=== PATIENT | male | born 1950 | race Caucasian/White ===

== ENCOUNTER 2018-04-24 08:37 | Observation (INO) | payer MEDICAID, OTHER ==
[2018-04-24] MEDS ORDERED: NA CHLORIDE 0.9% 1,000 ML ONE (09:17)
[2018-04-24 09:18] LABS: Absolute Lymphocytes (CBC) 1.7 K/uL (0.7-4.9); Absolute Monocytes 0.9 K/uL (0.1-1.3); Absolute Neutrophil 4.5 K/uL (1.8-8.0); Basophils % 0.7 % (0-1.3); Eosinophils % 1.9 % (0-4.4); Hematocrit 47.4 % (39.6-49.0); Lymphocytes % 23.5 % (15.3-44.8); MPV 9.2 fL (7.6-11.3); Monocytes % 12.2 % (3.3-12.3); RBC Red Blood Cell Count 4.82 M/uL (4.33-5.43)
[2018-04-24 09:39] LABS: Albumin 3.5 g/dL (3.4-5.0); Bilirubin Direct 0.2 mg/dL (0-0.2); Bilirubin Total 0.8 mg/dL (0.2-1.0); Potassium 4.2 mmol/L (3.5-5.1); Protein, Total 7.1 g/dL (6.4-8.2)
[2018-04-24] MEDS ORDERED: MAGNESIUM SULFATE 1 gm IVPB 1 GM/100 ML BAG IV ONE (10:25)
[2018-04-24 10:27] LABS: Urine Bacteria <20 /HPF (NONE SEEN); Urine RBC <5 /HPF (NONE SEEN)
[2018-04-24 10:28] LABS: Urine Culture Reflex Order NOT NEEDED
[2018-04-24 10:46] LABS: Urine Blood NEGATIVE (NEG); Urine Glucose NEGATIVE (NEG); Urine Protein NEGATIVE (NEG); Urine Specific Gravity 1.025 (1.005-1.030); Urine pH 5.5 (5.0-7.0)
--- NOTE | 2018-04-24 10:49 | RAD REPORT ---
EXAM DESCRIPTION: RAD - Abdomen 1 View (KUB) - 04/24/2018 10:40 am CLINICAL HISTORY: left flank pain Pain COMPARISON: No comparisons FINDINGS: The bowel gas pattern is non-obstructive. No evidence of free air or pneumatosis. [place] c alcification is seen likely within the left renal pelvis. Cholecystectomy clips. IMPRESSION: [place] stone suspected in the left renal pelvis.
--- NOTE | 2018-04-24 11:15 | RAD REPORT ---
EXAM DESCRIPTION: US - Renal Ultrasound-Complete - 04/24/2018 11:06 am CLINICAL HISTORY: left flank pain COMPARISON: ABDOMINAL EXAM COMPLETE dated 08/24/2010; ABDOMINAL EXAM COMPLETE dated 11/13/2008 FINDINGS: Both kidneys are normal in size, shape and echotexture. The right kidney measures 11.2 x 6.2 x 4.9 cm. No hydronephrosis, focal mass or perinephric fluid. The left kidney measures 11.7 x 7.6 x 4.8 cm. Moderate left hydronephrosis seen. The urinary bladder is incompletely distended without gross abnormality seen. IMPRESSION: Moderate left hydronephrosis.
[2018-04-24] MEDS ORDERED: MORPHINE 4 MG/ML SYR ONE (12:07)
[2018-04-24] MEDS ORDERED: ONDANSETRON 4 MG/2 ML VIAL ONE (12:07)
--- NOTE | 2018-04-24 13:24 | EDPHYS ---
Physician Documentation [facility] Name: Harris Jones Age: 67 yrs Sex: Male : 1950 Arrival Date: 04/24/2018 Time: 08:41 Bed 6 Private MD: ED Physician Chang Uribe HPI: 04/24 09:02 This 67 yrs old Male presents to ER via Ambulatory with complaints of cp Possible Kidney Stone. 09:02 The patient complains of pain in the left flank. The pain radiates to the abdomen. cp Onset: The symptoms/episode began/occurred 2 day(s) ago. 09:02 Associated signs and symptoms: Pertinent positives: decreased urinary output, Pertinent cp negatives: diarrhea, fever, pain radiating to the lower extremities, vomiting. 09:02 The patient has been recently seen by a physician: in [place] ED, with similar cp presenting complaints, and apparently given a diagnosis of left kidney stone, lab tests were done, CT scan was done, transfer recommended but patient reports he refused transfer. Historical: - Allergies: 08:51 Talwin; hb - PMHx: 08:51 Hypertension; Hypothyroidism; hb - PSHx: 08:51 Back; Pelvis; hb - Immunization history:: Adult Immunizations up to date, Adult Immunizations not immunized. - Social history:: Smoking status: Patient/guardian denies using tobacco, Smoking status: Patient uses tobacco products, Patient/guardian denies using alcohol. - Ebola Screening: : No symptoms or risks identified at this time Patient negative for fever greater than or equal to 101.5 degrees Fahrenheit, and additional compatible Ebola Virus Disease symptoms Patient denies exposure to infectious person Patient denies travel to an Ebola-affected area in the 21 days before illness onset. ROS: 09:05 Constitutional: Negative for body aches, chills, fever, poor PO intake. cp 09:05 Eyes: Negative for injury, pain, redness, and discharge. cp 09:05 ENT: Negative for drainage from ear(s), ear pain, sore throat, difficulty swallowing, difficulty handling secretions. 09:05 Cardiovascular: Negative for chest pain, edema, palpitations. 09:05 Respiratory: Negative for cough, shortness of breath, wheezing. 09:05 Abdomen/GI: Negative for vomiting, diarrhea, constipation, anorexia, black/tarry stool, rectal bleeding. 09:05 Back: Positive for flank pain, on the left. 09:05 MS/extremity: Negative for injury or acute deformity, decreased range of motion, paresthesias. 09:05 Skin: Negative for cellulitis, rash. 09:05 Neuro: Negative for altered mental status, headache, weakness. 09:05 All other systems are negative. Exam: 09:10 Constitutional: The patient appears in no acute distress, alert, awake, cp non-diaphoretic, non-toxic, well developed, well nourished. 09:10 Head/Face: Normocephalic, atraumatic. cp 09:10 Eyes: Periorbital structures: appear normal, Conjunctiva: normal, no exudate, no injection, Sclera: no appreciated abnormality, Lids and lashes: appear normal, bilaterally. 09:10 ENT: External ear(s): are unremarkable, Nose: is normal, Mouth: Lips: moist, Oral mucosa: moist, Posterior pharynx: Airway: no evidence of obstruction, patent. 09:10 Neck: ROM/movement: is normal, is supple, without pain, no range of motions limitations, no nuchal rigidity. 09:10 Chest/axilla: Inspection: normal, Palpation: is normal, no crepitus, no tenderness. 09:10 Cardiovascular: Rate: normal, Rhythm: regular, Edema: is not appreciated, JVD: is not appreciated. 09:10 Respiratory: the patient does not display signs of respiratory distress, Respirations: normal, no use of accessory muscles, no retractions, no splinting, no tachypnea, labored breathing, is not present, Breath sounds: are clear throughout, no decreased breath sounds, no stridor, no wheezing. 09:10 Abdomen/GI: Inspection: abdomen appears normal, Bowel sounds: active, all quadrants, Palpation: abdomen is soft and non-tender, in all quadrants. 09:10 Back: pain, that is moderate, of the left flank, ROM is normal. 09:10 Skin: cellulitis, is not appreciated, no rash present. 13:45 ECG was reviewed by the Attending Physician. cp Vital Signs: 08:50 BP 136 / 79; Pulse 62; Resp 16; Temp 97.4; Pulse Ox 100% on R/A; Weight 117.93 kg; hb Height 6 ft. 2 in. (187.96 cm) (R); Pain 6/10; 10:00 BP 140 / 75; Pulse 65; Resp 18; Pulse Ox 100% on R/A; hj 11:20 BP 139 / 76; Pulse 67; Resp 18; Pulse Ox 100% on R/A; hj 12:30 BP 132 / 75; Pulse 66; Resp 18; Pulse Ox 100% on R/A; hj 13:33 BP 128 / 74; Pulse 65; Resp 18; Pulse Ox 100% on R/A; hj 08:50 Body Mass Index 33.38 (117.93 kg, 187.96 cm) hb MDM: 08:45 Patient medically screened. 11:25 Physician consultation: Lisandra Pozo MD was called at 11:26, left message on voicemail. 12:15 Data reviewed: vital signs, nurses notes, lab test result(s), radiologic studies, plain cp films, ultrasound, and as a result, I will admit patient. 12:27 Physician consultation: Lisandra Pozo MD was called at 12:28, left message on cp voicemail. 12:51 Physician consultation: Jorje Oconnor MD was contacted at 12:51, regarding admission, cp patient's condition, will contact DR Pozo prior to admiting. 13:12 Physician consultation: Lisandra Pozo MD was contacted at 13:13, in the emergency cp department to see patient at 13:13. 04/24 09:02 Order name: Basic Metabolic Panel; Complete Time: 09:51 04/24 09:54 Interpretation: Normal except: GLUC 172; BUN 21; CRE 2.11; GFR 32; CA 8.4. 04/24 09:02 Order name: CBC with Diff; Complete Time: 09:51 cp 04/24 09:02 Order name: Creatinine for Radiology; Complete Time: 09:51 04/24 10:36 Interpretation: Reviewed. 04/24 09:02 Order name: Hepatic Function; Complete Time: 09:51 cp 04/24 09:02 Order name: Lipase; Complete Time: 09:51 cp 04/24 09:02 Order name: Urine Microscopic Only; Complete Time: 10:36 cp 04/24 10:36 Interpretation: Normal except: SQEPI 5-10. 04/24 09:54 Order name: XRAY KUB; Complete Time: 10:51 cp 04/24 09:54 Order name: US Rp Exam Complete; Complete Time: 12:47 cp 04/24 10:21 Order name: Urine Dipstick--Ancillary (enter results); Complete Time: 10:51 bd 04/24 13:12 Order name: XRAY Chest (1 view) cp 04/24 13:46 Order name: Abdomen 1 View (KUB) XRAY bd 04/24 14:07 Order name: RAD EDMS 04/24 09:02 Order name: IV Saline Lock; Complete Time: 09:04 cp 04/24 09:02 Order name: Labs collected and sent; Complete Time: 09:13 cp 04/24 09:02 Order name: Urine Dipstick-Ancillary (obtain specimen); Complete Time: 10:15 cp 04/24 13:12 Order name: EKG; Complete Time: 13:38 cp 04/24 13:12 Order name: EKG - Nurse/Tech; Complete Time: 13:42 cp 04/24 13:12 Order name: CONS Physician Consult; Complete Time: 13:29 EDMS EC:45 Rate is 51 beats/min. Rhythm is regular. ME interval is normal. QRS interval is normal. cp QT interval is normal. Interpreted by me. Reviewed by me. Administered Medications: 09:04 Drug: NS 0.9% 500 ml Route: IV; Rate: bolus; Site: right forearm; hj 10:04 Follow up: IV Status: Completed infusion hj 10:15 Drug: Magnesium Sulfate 1 grams Route: IVPB; Infused Over: 1 hrs; Site: right forearm; hj 13:30 Follow up: IV Status: Completed infusion hj 11:23 Drug: NS 0.9% 1000 ml Route: IV; Rate: 100 ml/hr; Site: right forearm; hj 13:29 Follow up: IV Status: Infusion continued upon admission hj 11:48 Drug: morphine 4 mg Route: IVP; Site: right forearm; hj 13:19 Follow up: Response: No adverse reaction; Pain is decreased hj 11:49 Drug: Zofran 4 mg Route: IVP; Site: right forearm; hj 13:18 Follow up: Response: No adverse reaction; Nausea is decreased hj 13:29 Drug: Rocephin - (cefTRIAXone) 1 grams Route: IVPB; Infused Over: 30 mins; Site: right hj forearm; 13:29 Follow up: IV Status: Completed infusion hj Disposition: 14:48 Co-signature as Attending Physician, Chang Uribe MD. rn Disposition: 04/24/18 13:24 Hospitalization ordered by Jorje Oconnor for Inpatient Admission. Preliminary diagnosis are Calculus of kidney - Left, Hydronephrosis with renal and ureteral calculous obstruction - Left, Acute kidney failure. - Bed requested for Telemetry/MedSurg (observation). - Status is Inpatient Admission. hj - Condition is Stable. - Problem is new. - Symptoms have improved. UTI on Admission? No Signatures: Dispatcher [employer] EDMS Chang Uribe MD MD rn Joaquin, Henry, RN RN Cristi Mills PA PA cp Baxter, Heather, RN RN Corrections: (The following items were deleted from the chart) 09:54 09:54 Normal except: GLUC 172; BUN 21; CRE 2.11; GFR 32. cp cp 13:24 13:24 Hospitalization Ordered by Jorje Oconnor MD for Observation. Preliminary diagnosis cp is Calculus of kidney - Left; Hydronephrosis with renal and ureteral calculous obstruction - Left; Acute kidney failure. Bed requested for Telemetry/MedSurg (observation). Status is Observation. Condition is Stable. Problem is new. Symptoms have improved. UTI on Admission? No. cp 14:24 13:24 04/24/2018 13:24 Hospitalization Ordered by Jorje Oconnor MD for Inpatient Admission. Preliminary diagnosis is Calculus of kidney - Left; Hydronephrosis with renal and ureteral calculous obstruction - Left; Acute kidney failure. Bed requested for Telemetry/MedSurg (observation). Status is Inpatient Admission. Condition is Stable. Problem is new. Symptoms have improved. UTI on Admission? No. cp
--- NOTE | 2018-04-24 13:24 | ER ---
Nurse's Notes [facility] Name: Harris Jones Age: 67 yrs Sex: Male : 1950 Arrival Date: 04/24/2018 Time: 08:41 Bed 6 Private MD: Diagnosis: Calculus of kidney-Left;Hydronephrosis with renal and ureteral calculous obstruction-Left;Acute kidney failure Presentation: 04/24 08:48 Presenting complaint: Left flank pain x 2 days. Seen at [place] ED yesterday for same hb s/s, told he has kidney stones but refused to stay in hospital. Transition of care: patient was not received from another setting of care. Onset of symptoms was April 22, 2018. Risk Assessment: Do you want to hurt yourself or someone else? Patient reports no desire to harm self or others. Initial Sepsis Screen: Does the patient meet any 2 criteria? No. Patient's initial sepsis screen is negative. Does the patient have a suspected source of infection? No. Patient's initial sepsis screen is negative. Care prior to arrival: None. 08:48 Method Of Arrival: Ambulatory hb 08:48 Acuity: MARIAH 3 hb Historical: - Allergies: 08:51 Talwin; hb - PMHx: 08:51 Hypertension; Hypothyroidism; hb - PSHx: 08:51 Back; Pelvis; hb - Immunization history:: Adult Immunizations up to date, Adult Immunizations not immunized. - Social history:: Smoking status: Patient/guardian denies using tobacco, Smoking status: Patient uses tobacco products, Patient/guardian denies using alcohol. - Ebola Screening: : No symptoms or risks identified at this time Patient negative for fever greater than or equal to 101.5 degrees Fahrenheit, and additional compatible Ebola Virus Disease symptoms Patient denies exposure to infectious person Patient denies travel to an Ebola-affected area in the 21 days before illness onset. Screenin:51 Abuse screen: Denies threats or abuse. Denies injuries from another. Nutritional hj screening: No deficits noted. Tuberculosis screening: No symptoms or risk factors identified. Fall Risk None identified. Assessment: 08:49 General: Appears in no apparent distress. uncomfortable, Behavior is calm, cooperative, hj appropriate for age. Pain: Complains of pain in L flank Pain currently is 6 out of 10 on a pain scale. Neuro: Level of Consciousness is awake, alert, obeys commands, Oriented to person, place, time, situation, Appropriate for age. Cardiovascular: Capillary refill < 3 seconds Patient's skin is warm and dry. Respiratory: Airway is patent Respiratory effort is even, unlabored, Respiratory pattern is regular, symmetrical. GI: Bowel sounds Abd is soft and non tender. : Reports pain in left flank(s). EENT: No signs and/or symptoms were reported regarding the EENT system. Derm: No signs and/or symptoms reported regarding the dermatologic system. Musculoskeletal: No signs and/or symptoms reported regarding the musculoskeletal system. 09:30 Reassessment: Patient and/or family updated on plan of care and expected duration. Pain hj level reassessed. Patient is alert, oriented x 3, equal unlabored respirations, skin warm/dry/pink. awaiting results and POC;. 10:30 Reassessment: Patient and/or family updated on plan of care and expected duration. Pain hj level reassessed. Patient is alert, oriented x 3, equal unlabored respirations, skin warm/dry/pink. wheeled to US;. 11:18 Reassessment: Patient and/or family updated on plan of care and expected duration. Pain hj level reassessed. Patient is alert, oriented x 3, equal unlabored respirations, skin warm/dry/pink. awaiting POC:. Vital Signs: 08:50 BP 136 / 79; Pulse 62; Resp 16; Temp 97.4; Pulse Ox 100% on R/A; Weight 117.93 kg; hb Height 6 ft. 2 in. (187.96 cm) (R); Pain 6/10; 10:00 BP 140 / 75; Pulse 65; Resp 18; Pulse Ox 100% on R/A; hj 11:20 BP 139 / 76; Pulse 67; Resp 18; Pulse Ox 100% on R/A; hj 12:30 BP 132 / 75; Pulse 66; Resp 18; Pulse Ox 100% on R/A; hj 13:33 BP 128 / 74; Pulse 65; Resp 18; Pulse Ox 100% on R/A; hj 08:50 Body Mass Index 33.38 (117.93 kg, 187.96 cm) hb ED Course: 08:41 Patient arrived in ED. as 08:45 Cristi Mills PA is PHCP. cp 08:45 Chang Uribe MD is Attending Physician. cp 08:49 Timo Carrizales, VITO is Primary Nurse. hj 08:49 Triage completed. hb 08:50 Arm band placed on. hb 08:51 Patient has correct armband on for positive identification. Placed in gown. Bed in low hb position. Call light in reach. Side rails up X 1. 08:55 Inserted saline lock: 22 gauge in right forearm, using aseptic technique. Missed pc1 attempt(s): 20 gauge in right forearm. IV discontinued, intact, bleeding controlled, No redness/swelling at site. Pressure dressing applied. 09:00 Initial lab(s) drawn, by me, sent to lab. hj 09:13 Basic Metabolic Panel Sent. hj 09:13 Creatinine for Radiology Sent. hj 09:13 CBC with Diff Sent. hj 09:13 Hepatic Function Sent. hj 09:13 Lipase Sent. hj 10:24 Patient moved to radiology via wheelchair. jb2 10:37 X-ray completed. Patient tolerated procedure well. Patient moved back from radiology. jb2 10:38 XRAY KUB In Process Unspecified. EDMS 11:05 US Rp Exam Complete In Process Unspecified. EDMS 13:23 Jorje Oconnor MD is Hospitalizing Provider. cp 13:34 No provider procedures requiring assistance completed. hj Administered Medications: 09:04 Drug: NS 0.9% 500 ml Route: IV; Rate: bolus; Site: right forearm; hj 10:04 Follow up: IV Status: Completed infusion hj 10:15 Drug: Magnesium Sulfate 1 grams Route: IVPB; Infused Over: 1 hrs; Site: right forearm; hj 13:30 Follow up: IV Status: Completed infusion hj 11:23 Drug: NS 0.9% 1000 ml Route: IV; Rate: 100 ml/hr; Site: right forearm; hj 13:29 Follow up: IV Status: Infusion continued upon admission hj 11:48 Drug: morphine 4 mg Route: IVP; Site: right forearm; hj 13:19 Follow up: Response: No adverse reaction; Pain is decreased hj 11:49 Drug: Zofran 4 mg Route: IVP; Site: right forearm; hj 13:18 Follow up: Response: No adverse reaction; Nausea is decreased hj 13:29 Drug: Rocephin - (cefTRIAXone) 1 grams Route: IVPB; Infused Over: 30 mins; Site: right hj forearm; 13:29 Follow up: IV Status: Completed infusion Outcome: 13:24 Decision to Hospitalize by Provider. cp 13:34 Admitted to OR accompanied by tech, via wheelchair, with chart. 13:34 Condition: stable 13:34 Instructed on the need for admit, Demonstrated understanding of instructions. 14:24 Patient left the ED. Signatures: Dispatcher [employer] EDMS Chris Moran Amelia as Joaquin, Henry, RN RN Cristi Urena PA PA cp Lashae Thomas, VITO RN Rick Lobato pc1
[2018-04-24] MEDS ORDERED: CEFTRIAXONE/SWI 1gm 1 GM/10 ML SYR ONE (13:36)
--- NOTE | 2018-04-24 14:06 | RAD REPORT ---
EXAM DESCRIPTION: RAD - Chest Single View - 04/24/2018 1:51 pm CLINICAL HISTORY: Left flank pain COMPARISON: None. TECHNIQUE: AP portable chest image was obtained 1348 hours . FINDINGS: Lungs are clear. Heart and vasculature are normal. No measurable pleural effusion and no p neumothorax. No acute bony abnormality seen. No acute aortic findings suspected. IMPRESSION: No acute cardiopulmonary process.
[2018-04-24] MEDS ORDERED: MIDAZOLAM HCL 2 MG/2 ML INJ ONE (14:18)
[2018-04-24] MEDS ORDERED: FENTANYL CITR 100 MCG/2 ML ONE (14:18)
[2018-04-24] MEDS ORDERED: LIDOCAINE 2% MPF 5 ML VIAL ONE (14:18)
[2018-04-24] MEDS ORDERED: PROPOFOL 200 MG/20 ML VIAL IV ONE (14:18)
[2018-04-24] MEDS ORDERED: NA CHLORIDE 0.9% 1,000 ML IV SCH (14:22)
[2018-04-24] MEDS ORDERED: Ringers Lactate 1,000 ML IV ONE (14:38)
[2018-04-24] MEDS ORDERED: Mastisol Adhesive Liq ONE (15:21)
[2018-04-24] MEDS ORDERED: GLYCOPYRROLATE 0.2 MG/ML SYR ONE (15:28)
[2018-04-24] MEDS ORDERED: EPHEDRINE SULF 50 MG/10 ML SYR ONE (15:38)
[2018-04-24 16:38] LABS: Urine Bacteria 20-50 /HPF (NONE SEEN)
[2018-04-24 16:39] LABS: Urine Culture Reflex Order NOT NEEDED; Urine Mucus 2+ /HPF (NONE SEEN)
[2018-04-24] MEDS ORDERED: TRAMADOL HCL 50 MG TAB ONE (17:11)
--- NOTE | 2018-04-24 18:32 | P.SSS ---
Patient History Date of Service: 04/24/18 Reason for admission: Left flank pain History of Present Illness: This is a 67-year-old male with a history of hypertension and thyroid disease admitted for left leg pain. This pain started on Monday and patient went to [facility] on Monday, where he left AMA. The pain progressively got worse , so he came into the hospital. He was found to have a 11 mm stone in the left UPJ along with hydronephrosis in the ER. Patient denies any fevers, chills, chest pain, shortness of breath, GI complaints. He does endorse a hard time urinating, which is improved today. In the ER, patient was hemodynamically stable, he received Rocephin, morphine and Zofran which helped his pain. His lab work was significant for creatinine of 2.11, otherwise normal. At the time of my exam, patient was alert oriented x3, in no acute distress and was walking around comfortably. Dr. Pozo, urology was consulted. Allergies No Known Allergies Allergy (Unverified 04/24/18 14:22) - Past Medical/Surgical History -: Hypertension -: Thyroid disease Review of Systems 10-point ROS is otherwise unremarkable Physical Examination - Vital Signs Temperature: 97.4 F Blood Pressure: 130/72 Pulse: 80 Respirations: 18 - Physical Exam General: Alert, In no apparent distress, Oriented x3 HEENT: Atraumatic, PERRLA, Mucous membr. moist/pink, EOMI, Sclerae nonicteric Neck: Supple, 2+ carotid pulse no bruit, No LAD, Without JVD or thyroid abnormality Respiratory: Clear to auscultation bilaterally, Normal air movement Cardiovascular: Regular rate/rhythm, Normal S1 S2 Gastrointestinal: Normal bowel sounds, No tenderness Musculoskeletal: No tenderness Integumentary: No rashes Neurological: Normal gait, Normal speech, Normal strength at 5/5 x4 extr, Normal tone, Normal affect Lymphatics: No axilla or inguinal lymphadenopathy - Studies Laboratory Data (last 24 hrs) 04/24/18 09:00: Creatinine 2.12 H 04/24/18 09:00: WBC 7.3, Hgb 16.0, Hct 47.4, Plt Count 166 04/24/18 09:00: Sodium 142, Potassium 4.2, BUN 21 H, Creatinine 2.11 H, Glucose 172 H, Total Bilirubin 0.8, AST 21, ALT 34, Alkaline Phosphatase 112, Lipase 124 Treatment Summary: Dr. Pozo, urology was consulted. Patient underwent cystoscopy with stent placement. Patient's symptoms improved. He remained hemodynamically stable, tolerated procedure well. He was discharged from the recovery room with instructions to follow up as an outpatient with Dr. Pozo for repeat blood work , creatinine/lab recheck. He remained stable otherwise throughout the stay. No medication changes made - Disposition Discharge Date: 04/24/18 Disposition: ROUTINE DISCHARGE Condition: GOOD Consultations: Dr. Pozo, urology Patient Discharge Instructions: Please follow up with Dr. Pozo in 1 week. Please follow up with your primary care physician in 2-3 days. Diet: Regular Activity: Ad cha Time Spent Managing Pts Care (In Minutes): 55
--- NOTE | 2018-04-24 18:35 | CON ---
History Of Present Illness: This is a pleasant 67-year-old gentleman, who was in good state of healt h until 2 days ago after having severe left flank pain. He went to [facility] where a workup was done showing that he had an 11 mm stone at the left UPJ with a normal right kidney. He had a 4 mm nonobs tructing right renal pelvic stone also, but there was marked left hydronephrosis and extensive left p erinephric fat stranding with 11 mm stone at left UPJ. The pain was so severe in nature, decided to come to this ER, they try to send to [place], but he did not want to go since he lost a brother in [facility] due to kidney stone surgery. This patient said he had a left percutaneous stone surgery done y ears ago in [place] on the same kidney. He has been n.p.o. overnight. However, he drank 2 cups of c lear water 30 minutes prior to me seeing the patient, so we will have to wait at least 2 hours for an esthesia. Past Medical History: Kidney stones, hypertension, hypothyroidism. Medications: Levothyroxine, amitriptyline, Bystolic. Allergies: TO TALWIN CAUSES PARALYSIS IN HIS VOICE AND BODY MOVEMENTS. Social History: No tobacco. No alcohol. No IV drug use. Family History: Noncontributory. Brother had a kidney stone. Review of Systems: Ten-point review of system is otherwise negative. Physical Examination: Vital Signs: In the ER blood pressure 136/79, heart rate 62, temperature 97.4, respirations 22, heig ht 6 feet 2 inches, weight 260 pounds. HEENT: Atraumatic and normocephalic. Lungs: Clear. Heart: S1 and S2. ABDOMEN: Soft. Nontender. Extremities: Normal range of motion. Laboratory Data: Lab Studies reviewed. Sodium 139, potassium 4.3, chloride 105, CO2 23, glucose 157 , BUN 16, creatinine 1.5 elevated. EGFR for him on non- is 50. Calcium 8.6 normal. LFTs normal. White count normal at 8.9, H and H 16 and 47, platelet count 188. Urinalysis pending. Assessment: An 11 mm left UPJ stone causing marked left hydronephrosis and pain. Extensive perineph gissell fat stranding. The patient needs a cysto stent placement and ESWL. NERY Hernandez tech is going t o wait to do the case. The patient was given all general information, alternatives, and risks. He w as not coerced. He was understood everything that we explained and wishes to proceed. FUAD/AMANDA Voice ID: [id number] Report ID: [id number]
--- NOTE | 2018-04-26 10:31 | EKG ---
Test Date: 2018-04-24 Test Time: 13:34:05 [employer]cher[employer] Inspector: STEVE MEASUREMENT RESULTS: Intervals: Rate: 51 [place]: 160 QRSD: 100 QT: 422 QTc: 388 [place]: P: 53 [place]: 160 QRS: 56 T: 49 INTERPRETIVE STATEMENTS: Sinus bradycardia Otherwise normal ECG Compared to ECG 10/18/2005 18:36:45 T-wave abnormality no longer present Electronically Signed On 04-25-18 08:12:10 CDT by Jeremiah Abdalla
== END 2018-04-24 17:55 | disposition home or self-care (01) ==
LOC: ER 08:37 → ERHOLD 13:11 → INTOOBSV 13:11
PROVIDERS: ADMIT Family Medicine; ATTEND Family Medicine
PROC: 0T778DZ Dilation of Left Ureter with Intraluminal Device, Via Natural or Artificial Opening Endoscopic (ICD-10-PCS; 2018-04-24)
PROC: 0TF7XZZ Fragmentation in Left Ureter, External Approach (ICD-10-PCS; principal; 2018-04-24 15:00)
DX: N13.2 Hydronephrosis with renal and ureteral calculous obstruction (principal); I10 Essential (primary) hypertension; E03.9 Hypothyroidism, unspecified
CPT/HCPCS: 96365; 96361; 93005; 87088; 85025; 80048; 36415; 80076; 83690; 74018; 71045; 76770; 50590; 96375; 99285; 96366; 52332; J2704; J2250; J3010; J3475; J0696; J7030; J2405; Q9967; G0378; 81003; 81015; 87086

== ENCOUNTER 2019-12-19 08:22 | Emergency (ER) | payer OTHER ==
[2019-12-19 09:41] LABS: Absolute Lymphocytes (CBC) 1.6 K/uL (0.7-4.9); Basophils % 0.4 % (0-1.3); Hematocrit 50.7 % (39.6-49.0); Lymphocytes % 43.2 % (15.3-44.8); MPV 9.3 fL (7.6-11.3); RBC Red Blood Cell Count 5.19 M/uL (4.33-5.43)
[2019-12-19 09:50] LABS: Albumin 3.6 g/dL (3.4-5.0); Bilirubin Direct 0.1 mg/dL (0-0.2); Bilirubin Total 0.6 mg/dL (0.2-1.0); Potassium 4.4 mmol/L (3.5-5.1); Protein, Total 7.6 g/dL (6.4-8.2)
[2019-12-19 09:59] LABS: Urine Blood 3+ (NEG); Urine Glucose NEGATIVE (NEG); Urine Protein 2+ (NEG); Urine Specific Gravity >1.030 (1.005-1.030); Urine pH 5.5 (5.0-7.0)
[2019-12-19] MEDS ORDERED: ONDANSETRON 4 MG/2 ML VIAL ONE (10:00)
[2019-12-19] MEDS ORDERED: NA CHLORIDE 0.9% 500 ML ONE ×2 (10:00→12:12)
[2019-12-19] MEDS ORDERED: KETOROLAC 30 MG/ML INJ ONE (10:00)
--- NOTE | 2019-12-19 10:30 | RAD REPORT ---
EXAM DESCRIPTION: CT - Stone Protocol - 12/19/2019 10:07 am CLINICAL HISTORY: Abdominal pain. Right flank pain COMPARISON: None. TECHNIQUE: Computed axial tomography of the abdomen pelvis was obtained without oral or IV contrast. Lack of IV and oral contrast limits evaluation of solid organs, bowel, and vessels. Coronal reformat russell images were obtained and reviewed. All CT scans are performed using dose optimization technique as appropriate and may include automated exposure control or mA/KV adjustment according to patient size. FINDINGS: A a 9 millimeter calculus right renal pelvis with mild hydronephrosis. Hounsfield unit 111 9. Stranding within the parapelvic fat. A ureteral calculus is not seen. No left renal calculus. Fatty liver Spleen, pancreas and adrenals appear grossly normal Spondylosis involves lumbar spine resulting in spinal stenosis 5 millimeter nodule right lung base Diverticula stem from the colon without evidence of diverticulitis. The appendix appears normal. Smal l inguinal hernias contain fat. Postsurgical changes involve the pelvic bones. IMPRESSION: A 9 millimeter calculus right renal pelvis with mild hydronephrosis 5 millimeter nodule right lung base. If patient is high risk then followup CT chest in 6-12 months wo uld be recommended
[2019-12-19] MEDS ORDERED: MORPHINE 4 MG/ML SYR ONE (11:07)
[2019-12-19] MEDS ORDERED: MAGNESIUM SULFATE 1 gm IVPB 1 GM/100 ML BAG IV ONE (11:08)
[2019-12-19] MEDS ORDERED: TAMSULOSIN 0.4 MG SR CAP ONE (11:08)
[2019-12-19] MEDS ORDERED: CEFTRIAXONE/SWI 1gm 1 GM/10 ML SYR ONE (11:08)
[2019-12-19 11:11] LABS: Urine Bacteria <20 /HPF (NONE SEEN); Urine Culture Reflex Order NOT NEEDED; Urine Mucus HEAVY /HPF (NONE SEEN); Urine RBC TNTC /HPF (NONE SEEN)
[2019-12-19] MEDS ORDERED: HYDROMORPHONE HCL 1 MG/ML INJ ONE (12:03)
--- NOTE | 2019-12-19 12:28 | ER ---
Nurse's Notes [facility] Name: Harris Jones Age: 69 yrs Sex: Male : 1950 Arrival Date: 12/19/2019 Time: 08:23 Bed 14 Private MD: Diagnosis: Calculus of kidney and ureter-right Presentation: 12/18 08:58 Chief complaint: Patient states: right flank pain X 2 days, +hx of kidney stones, also iw has burning with urination. Coronavirus screen: At this time, the client does not indicate any symptoms associated with coronavirus-19. Ebola Screen: Patient negative for fever greater than or equal to 101.5 degrees Fahrenheit, and additional compatible Ebola Virus Disease symptoms Patient denies exposure to infectious person. Patient denies travel to an Ebola-affected area in the 21 days before illness onset. No symptoms or risks identified at this time. Initial Sepsis Screen: Does the patient meet any 2 criteria? No. Patient's initial sepsis screen is negative. Does the patient have a suspected source of infection? No. Patient's initial sepsis screen is negative. Risk Assessment: Do you want to hurt yourself or someone else? Patient reports no desire to harm self or others. Onset of symptoms was December 17, 2019. 08:58 Method Of Arrival: Ambulatory iw 08:58 Acuity: MARIAH 3 iw Historical: - Allergies: 09:00 Talwin; iw - PMHx: 09:00 Hypertension; Hypothyroidism; iw - PSHx: 09:00 Back; Pelvis; Lithotripsy; iw - Immunization history:: Adult Immunizations not up to date. - Social history:: Smoking status: Patient denies any tobacco usage or history of. Screenin:01 Abuse screen: Denies threats or abuse. Denies injuries from another. Nutritional iw screening: No deficits noted. Tuberculosis screening: No symptoms or risk factors identified. Fall Risk None identified. Assessment: 09:00 General: Appears in no apparent distress. Behavior is calm, cooperative. Pain: iw Complains of pain in posterior aspect of right lateral abdomen Pain currently is 10 out of 10 on a pain scale. Neuro: Level of Consciousness is awake, alert, obeys commands, Oriented to person, place, time, situation, Moves all extremities. Full function. Cardiovascular: Patient's skin is warm and dry. Respiratory: Respiratory effort is even, unlabored, Respiratory pattern is regular, symmetrical. GI: Abdomen is flat, non-distended, Bowel sounds present X 4 quads. Abd is soft X 4 quads. : Reports burning with urination, pain in right flank(s). Derm: Skin is intact, is healthy with good turgor. Musculoskeletal: Range of motion: intact in all extremities. 10:20 Reassessment: Patient appears in no apparent distress at this time. Patient and/or ca1 family updated on plan of care and expected duration. Pain level reassessed. Patient is alert, oriented x 3, equal unlabored respirations, skin warm/dry/pink. 11:05 Reassessment: Patient appears in no apparent distress at this time. Patient and/or ca1 family updated on plan of care and expected duration. Pain level reassessed. Patient is alert, oriented x 3, equal unlabored respirations, skin warm/dry/pink. 12:05 Reassessment: Patient appears in no apparent distress at this time. Patient and/or ca1 family updated on plan of care and expected duration. Pain level reassessed. Patient is alert, oriented x 3, equal unlabored respirations, skin warm/dry/pink. 12:47 Reassessment: Patient appears in no apparent distress at this time. Patient is alert, ca1 oriented x 3, equal unlabored respirations, skin warm/dry/pink. Patient states feeling better. Vital Signs: 08:58 BP 151 / 100; Pulse 57; Resp 16; Temp 98.6(TE); Pulse Ox 98% on R/A; Weight 122.47 kg; iw Height 6 ft. 2 in. (187.96 cm); Pain 10/10; 10:22 BP 130 / 82; Pulse 51; Resp 16 S; Pulse Ox 97% on R/A; ca1 11:05 BP 142 / 92; Pulse 51; Resp 16 S; Pulse Ox 97% on R/A; ca1 12:00 BP 136 / 78; Pulse 52; Resp 16 S; Pulse Ox 95% on R/A; ca1 12:48 BP 145 / 89; Pulse 51; Resp 16 S; Pulse Ox 96% on R/A; ca1 08:58 Body Mass Index 34.67 (122.47 kg, 187.96 cm) iw ED Course: 08:23 Patient arrived in ED. ag5 08:54 Vaishali Carvajal, VITO is Primary Nurse. iw 08:55 Cristi Mills PA is PHCP. cp 08:55 Brad Cool MD is Attending Physician. cp 08:59 Triage completed. iw 08:59 Arm band placed on. iw 09:18 Initial lab(s) drawn, by me, sent to lab. Inserted saline lock: 20 gauge in left iw antecubital area, using aseptic technique. 09:30 Patient has correct armband on for positive identification. Placed in gown. Bed in low mh5 position. Call light in reach. Side rails up X 1. Warm blanket given. Pulse ox on. NIBP on. 09:30 Urine Microscopic Only Sent. 5 09:30 Urine collected: clean catch specimen, deepti colored. [facility] 09:31 Basic Metabolic Panel Sent. 5 09:31 CBC with Diff Sent. 5 09:31 Hepatic Function Sent. 5 09:31 Lipase Sent. 5 10:08 CT Stone Protocol In Process Unspecified. EDMS 12:27 Jani Beck MD is Referral Physician. cp 12:49 No provider procedures requiring assistance completed. IV discontinued, intact, ca1 bleeding controlled, No redness/swelling at site. Pressure dressing applied. Administered Medications: 09:52 Drug: TORadol - Ketorolac 15 mg Route: IVP; Site: left antecubital; iw 11:03 Follow up: Response: No adverse reaction; Pain is unchanged, physician notified ca1 09:52 Drug: Zofran (Ondansetron) 4 mg Route: IVP; Site: left antecubital; iw 11:03 Follow up: Response: No adverse reaction; Nausea is decreased ca1 09:52 Drug: NS 0.9% 500 ml Route: IV; Rate: bolus; Site: left antecubital; iw 11:03 Follow up: Response: No adverse reaction; IV Status: Completed infusion; IV Intake: ca1 500ml 11:00 Drug: Flomax 0.4 mg Route: PO; ca1 12:48 Follow up: Response: No adverse reaction ca1 11:02 Drug: morphine 4 mg Route: IVP; Site: left antecubital; ca1 12:00 Follow up: Response: No adverse reaction; Pain is unchanged, physician notified; RASS: ca1 Alert and Calm (0) 11:04 Drug: Rocephin 1 grams Route: IV; Rate: calculated rate; Site: left antecubital; ca1 11:07 Drug: Magnesium Sulfate 1 grams Route: IVPB; Infused Over: 1 hrs; Site: left ca1 antecubital; 11:40 Drug: Dilaudid 1 mg {Note: rass 0.} Route: IVP; Site: left antecubital; ca1 12:49 Follow up: Response: No adverse reaction; Pain is decreased ca1 12:04 Drug: NS 0.9% 500 ml Route: IV; Rate: bolus; Site: left antecubital; ca1 12:49 Follow up: Response: No adverse reaction; IV Status: Completed infusion; IV Intake: ca1 500ml Intake: 11:03 IV: 500ml; Total: 500ml. ca1 12:49 IV: 500ml; Total: 1000ml. ca1 Outcome: 12:28 Discharge ordered by MD. cp 12:49 Discharged to home ambulatory, with family. ca1 12:49 Condition: stable 12:49 Discharge instructions given to patient, Instructed on discharge instructions, follow up and referral plans. medication usage, Demonstrated understanding of instructions, follow-up care, medications, Prescriptions given X 4. 12:50 Patient left the ED. ca1 Signatures: Dispatcher [employer] EDVaishali Norris RN RN iw Page, Corey, PA PA cp Martinez, Maria 5 Val Darling RN RN ca1 Gaskin, Ajare ag5
--- NOTE | 2019-12-19 12:29 | EDPHYS ---
Physician Documentation [facility] Name: Harris Jones Age: 69 yrs Sex: Male : 1950 Arrival Date: 12/19/2019 Time: 08:23 Bed 14 Private MD: ED Physician Brad Cool HPI: 12/18 09:00 This 69 yrs old Male presents to ER via Ambulatory with complaints of cp Possible Kidney Stone. 09:00 The patient complains of pain in the right flank. cp 09:00 The pain radiates to the abdomen. Onset: The symptoms/episode began/occurred 2 day(s) cp ago. Associated signs and symptoms: Pertinent negatives: diarrhea, dizziness, fever, pain radiating to the lower extremities, vomiting. Severity of pain: in the emergency department the pain is unchanged despite home interventions. The patient has experienced similar episodes in the past, today's symptoms are similar, to when the patient was apparently diagnosed with kidney stone. Historical: - Allergies: 09:00 Talwin; iw - PMHx: 09:00 Hypertension; Hypothyroidism; iw - PSHx: 09:00 Back; Pelvis; Lithotripsy; iw - Immunization history:: Adult Immunizations not up to date. - Social history:: Smoking status: Patient denies any tobacco usage or history of. ROS: 09:05 Back: Positive for flank pain, on the right. cp 09:05 Eyes: Negative for injury, pain, redness, and discharge. cp 09:05 Constitutional: Negative for body aches, chills, fever, poor PO intake. 09:05 Cardiovascular: Negative for chest pain. 09:05 Respiratory: Negative for cough, shortness of breath. 09:05 Abdomen/GI: Negative for nausea, vomiting, and diarrhea, constipation. 09:05 : Positive for burning with urination. 09:05 Neuro: Negative for altered mental status, headache, weakness. 09:05 All other systems are negative. Exam: 09:15 Constitutional: The patient appears in no acute distress, alert, awake, non-toxic, well cp developed, well nourished, obese. 09:15 Head/Face: Normocephalic, atraumatic. cp 09:15 Eyes: Periorbital structures: appear normal, Conjunctiva: normal, no exudate, no injection, Sclera: no appreciated abnormality, Lids and lashes: appear normal, bilaterally. 09:15 ENT: External ear(s): are unremarkable, Nose: is normal, Mouth: Lips: moist, Oral mucosa: moist, Posterior pharynx: Airway: no evidence of obstruction, patent. 09:15 Chest/axilla: Inspection: normal, Palpation: is normal, no crepitus, no tenderness. 09:15 Cardiovascular: Rate: normal, Rhythm: regular, Edema: is not appreciated, JVD: is not appreciated. 09:15 Respiratory: the patient does not display signs of respiratory distress, Respirations: normal, no use of accessory muscles, labored breathing, is not present, Breath sounds: are clear throughout, no decreased breath sounds. 09:15 Abdomen/GI: Inspection: abdomen appears normal, Bowel sounds: active, all quadrants, Palpation: soft, in all quadrants, mild abdominal tenderness, in the right upper quadrant and right lower quadrant, rebound tenderness, is not appreciated, voluntary guarding, is not appreciated, involuntary guarding, is not appreciated. 09:15 Back: CVA tenderness, that is mild, is noted on the right. 09:15 Skin: no rash present. 09:15 Neuro: Orientation: to person, place \T\ time. Mentation: is normal. Vital Signs: 08:58 BP 151 / 100; Pulse 57; Resp 16; Temp 98.6(TE); Pulse Ox 98% on R/A; Weight 122.47 kg; iw Height 6 ft. 2 in. (187.96 cm); Pain 10/10; 10:22 BP 130 / 82; Pulse 51; Resp 16 S; Pulse Ox 97% on R/A; ca1 11:05 BP 142 / 92; Pulse 51; Resp 16 S; Pulse Ox 97% on R/A; ca1 12:00 BP 136 / 78; Pulse 52; Resp 16 S; Pulse Ox 95% on R/A; ca1 12:48 BP 145 / 89; Pulse 51; Resp 16 S; Pulse Ox 96% on R/A; ca1 08:58 Body Mass Index 34.67 (122.47 kg, 187.96 cm) iw MDM: 08:56 Patient medically screened. cp 10:00 Differential diagnosis: nephrolithiasis, pyelonephritis, UTI, pancreatitis, ruptured cp AAA, dissecting AAA. 11:35 Physician consultation: Jani Beck MD was called at 11:30, was contacted at 11:30, cp regarding consult, patient's condition, recommends pain control and compare current creatine level to baseline. May f/u in clinic if pain and nausea controlled. 12:22 ED course: VSS. Pain improved. No vomiting observed and patient tolerating po fluids. cp Will discharge to home for continued monitoring. 12:27 Data reviewed: vital signs, nurses notes, lab test result(s), radiologic studies, CT cp scan, and as a result, I will discharge patient. 12:27 Counseling: I had a detailed discussion with the patient and/or guardian regarding: the cp historical points, exam findings, and any diagnostic results supporting the discharge/admit diagnosis, lab results, radiology results, the need for outpatient follow up, a urologist, to return to the emergency department if symptoms worsen or persist or if there are any questions or concerns that arise at home. 12:27 Response to treatment: the patient's symptoms have markedly improved after treatment. 12/18 08:59 Order name: Basic Metabolic Panel; Complete Time: 10:16 iw 12/18 10:16 Interpretation: Normal except: CL 109; CRE 1.55; GFR 45. cp 12/18 08:59 Order name: CBC with Diff; Complete Time: 10:16 iw 12/18 10:16 Interpretation: Normal except: WBC 3.8; HCT 50.7; PLT 140; CL% 38.5; MN% 16.8; NEUT A cp 1.4. 12/18 08:59 Order name: Hepatic Function; Complete Time: 10:16 iw 12/18 08:59 Order name: Lipase; Complete Time: 10:16 iw 12/18 09:12 Order name: Urine Microscopic Only; Complete Time: 11:26 cp 12/18 11:27 Interpretation: Normal except: URBC TNTC. cp 12/18 09:31 Order name: Urine Dipstick--Ancillary (enter results) em1 12/18 09:31 Order name: Urine Dipstick-Ancillary; Complete Time: 10:16 EDMS 12/18 10:16 Interpretation: Normal except: USPGR >1.030; UBLD 3+; UPROT 2+. cp 12/18 09:44 Order name: CT Stone Protocol; Complete Time: 10:45 cp 12/18 08:59 Order name: IV Saline Lock; Complete Time: 09:19 iw 12/18 08:59 Order name: Labs collected and sent; Complete Time: 09:19 iw 12/18 09:12 Order name: Urine Dipstick-Ancillary (obtain specimen); Complete Time: 09:29 cp 12/18 11:37 Order name: PO challenge; Complete Time: 11:57 cp Administered Medications: 09:52 Drug: TORadol - Ketorolac 15 mg Route: IVP; Site: left antecubital; iw 11:03 Follow up: Response: No adverse reaction; Pain is unchanged, physician notified ca1 09:52 Drug: Zofran (Ondansetron) 4 mg Route: IVP; Site: left antecubital; iw 11:03 Follow up: Response: No adverse reaction; Nausea is decreased ca1 09:52 Drug: NS 0.9% 500 ml Route: IV; Rate: bolus; Site: left antecubital; iw 11:03 Follow up: Response: No adverse reaction; IV Status: Completed infusion; IV Intake: ca1 500ml 11:00 Drug: Flomax 0.4 mg Route: PO; ca1 12:48 Follow up: Response: No adverse reaction ca1 11:02 Drug: morphine 4 mg Route: IVP; Site: left antecubital; ca1 12:00 Follow up: Response: No adverse reaction; Pain is unchanged, physician notified; RASS: ca1 Alert and Calm (0) 11:04 Drug: Rocephin 1 grams Route: IV; Rate: calculated rate; Site: left antecubital; ca1 11:07 Drug: Magnesium Sulfate 1 grams Route: IVPB; Infused Over: 1 hrs; Site: left ca1 antecubital; 11:40 Drug: Dilaudid 1 mg {Note: rass 0.} Route: IVP; Site: left antecubital; ca1 12:49 Follow up: Response: No adverse reaction; Pain is decreased ca1 12:04 Drug: NS 0.9% 500 ml Route: IV; Rate: bolus; Site: left antecubital; ca1 12:49 Follow up: Response: No adverse reaction; IV Status: Completed infusion; IV Intake: ca1 500ml Disposition: 13:31 Co-signature as Attending Physician, Brad Cool MD I agree with the assessment and kdr plan of care. Disposition: 12/19/19 12:28 Discharged to Home. Impression: Calculus of kidney and ureter - right. - Condition is Stable. - Discharge Instructions: Kidney Stones. - Prescriptions for Cipro 250 mg Oral Tablet - take 1 tablet by ORAL route every 12 hours for 7 days; 14 tablet. Tylenol- Codeine #3 300-30 mg Oral Tablet - take 2 tablets by ORAL route every 6 hours As needed; 20 tablet. Zofran 4 mg Oral Tablet - take 1 tablet by ORAL route every 12 hours As needed; 20 tablet. Flomax 0.4 mg Oral Capsule, Sust. Release 24 hr - take 1 capsule by ORAL route once daily 1/2 hour following the same meal each day; 5 capsule. - Medication Reconciliation Form, Thank You Letter, Antibiotic Education, Prescription Opioid Use form. - Follow up: Jani Beck MD; When: 1 - 2 days; Reason: right kidney stone. - Problem is new. - Symptoms have improved. Signatures: Dispatcher [employer] EDMS Brad Cool MD MD kdr Vaishali Carvajal RN RN iw Cristi Mills PA PA cp Val Darling RN RN ca1 Corrections: (The following items were deleted from the chart) 12:50 12:28 12/19/2019 12:28 Discharged to Home. Impression: Calculus of kidney and ureter - ca1 right. Condition is Stable. Forms are Medication Reconciliation Form, Thank You Letter, Antibiotic Education, Prescription Opioid Use. Follow up: Jani Beck; When: 1 - 2 days; Reason: right kidney stone. Problem is new. Symptoms have improved. cp 12/19 09:19 12/18 19:25 Data reviewed: vital signs, nurses notes, lab test result(s), radiologic cp studies, CT scan, and as a result, I will discharge patient, cp
[2019-12-19 14:15] VITALS: TEMP 98.6
[2019-12-19 14:21] VITALS: BP 145/89; O2SAT 96
== END 2019-12-19 12:50 | disposition home or self-care (01) ==
LOC: ER 08:22
DX: N20.2 Calculus of kidney with calculus of ureter (principal); I10 Essential (primary) hypertension; Z88.6 Allergy status to analgesic agent
CPT/HCPCS: 96361; 85025; 80048; 36415; 80076; 83690; 76377; 74176; 96375; 96374; 99284; J3475; J1170; J0696; J7040 ×2; J2405; 81003; 81015

== ENCOUNTER 2020-01-21 14:04 | Day surgery (SDC) | payer OTHER ==
[2019-12-25 14:13] LABS: Absolute Lymphocytes (CBC) 2.1 K/uL (0.7-4.9); Basophils % 0.2 % (0-1.3); Hematocrit 48.9 % (39.6-49.0); Lymphocytes % 38.5 % (15.3-44.8); MPV 9.2 fL (7.6-11.3); RBC Red Blood Cell Count 5.05 M/uL (4.33-5.43)
--- NOTE | 2019-12-25 14:14 | RAD REPORT ---
EXAM DESCRIPTION: RAD - Chest Pa And Lat (2 Views) - 12/25/2019 1:56 pm CLINICAL HISTORY: PRE OP, pending kidney stone removal, lithotripsy COMPARISON: April 2018 TECHNIQUE: Frontal and lateral views of the chest were obtained. FINDINGS: The lungs are clear. Heart size is normal and central vasculature is within normal limit s. No pleural effusion or pneumothorax seen. No acute bony finding noted. No aortic abnormality. IMPRESSION: No acute cardiopulmonary process.
[2019-12-25 14:16] LABS: Protime INR 1.08
[2019-12-25 14:22] LABS: Potassium 4.1 mmol/L (3.5-5.1)
[2019-12-25 14:57] LABS: Blood Morphology Comment NOT SEEN (NOT SEEN); Platelet Estimate DECR; White Blood Cell Scan OK (OK)
[~2020-01-21 14:04] MED LIST: AMPICILLIN SODIUM 2 GM in NA CHLORIDE 0.9% 100 ML IVPB SCH; Gentamicin Inj 320 MG in NA CHLORIDE 0.9% 100 ML IV SCH
[2020-01-21] MEDS ORDERED: FENTANYL CITR 100 MCG/2 ML ONE (15:54)
[2020-01-21] MEDS ORDERED: LIDOCAINE 1% MPF 5 ML VIAL ONE (15:54)
[2020-01-21] MEDS ORDERED: propofoL 200 MG/20 ML VIAL IV ONE (15:54)
[2020-01-21] MEDS ORDERED: MIDAZOLAM HCL 2 MG/2 ML INJ ONE (15:54)
[2020-01-21] MEDS ORDERED: GENTAMICIN 100 MG/100 ML BAG 100 ML IV ONE (16:02)
[2020-01-21] MEDS ORDERED: PHENAZOPYRIDINE 100MG TAB PO ONE (16:08)
[2020-01-21] MEDS ORDERED: HYDROMORPHONE HCL 1 MG/ML INJ ONE (16:51)
[2020-01-21] MEDS ORDERED: ONDANSETRON 4 MG/2 ML VIAL ONE ×2 (16:51→18:08)
[2020-01-21] MEDS ORDERED: dexAMETHasone 10 MG/ML VIAL ONE (16:54)
--- NOTE | 2020-01-21 17:02 | RAD REPORT ---
EXAM DESCRIPTION: RAD - Urethrocystogrphy Retrograde - 01/21/2020 4:50 pm FINDINGS: There were 7 portable KUB images obtained during a fluoroscopic assisted placement of a ri ght ureteral stent. No unexpected findings. Stent in good position. Fluoro time was 0.07 minutes
[2020-01-21 17:26] VITALS: O2SAT 96
[2020-01-21] MEDS: MORPHINE 4 MG/ML SYR ONE ×2 (17:55→18:00)
[2020-01-21] MEDS: MEPERIDINE HCL 25 MG/ML SYR ONE ×2 (18:08→18:13)
[2020-01-21] MEDS ORDERED: HYDROCODONE/APAP 7.5/325 MG TAB ONE (18:55)
--- NOTE | 2020-01-21 19:00 | OP ---
Surgeon: BETITO NAVARRETE Preoperative Diagnoses: Right obstructive ureterolithiasis, 9 mm proximal ureteral stone; COVID-19 p ositive. Postoperative Diagnoses: Right obstructive ureterolithiasis, 9 mm proximal ureteral stone; COVID-19 positive. Principal Procedure: Cystoscopy, right retrograde pyelography, and right ureteral stent placement. Indication For Procedure: Mr. Jones presented to the Urology Clinic with a 9 mm proximal ureteral obstructing calculus and signs of chronic kidney disease versus acute kidney injury with no prior [facility] creatinine record available. As a result, he was scheduled for timely ureteroscopic management of the right ureteral calculus, but because of a positive COVID-19 test, his surgery was delayed for 2 weeks. He continued to shed viral particles and persisted with a positive COVID test in preparati on for today's surgery, but because of the concern for kidney injury and renal function decline, we a ccepted the risk of COVID-[address] a stent and preserve his remaining nephrons. Procedure In Detail: The patient was consented in the preoperative holding area before being transfe rred to the operative suite where general anesthesia using an LMA was induced. He was given ampicill in 2 g and gentamicin 100 mg IV antimicrobial prophylaxis. Pneumo boots were provided for DVT prophy laxis. He was placed in the lithotomy position, padded and secured to the table appropriately. His genitalia were prepped using Hibiclens and draped in standard fashion. The case was begun initially using a 22-Kenyan rigid cystoscope to traverse the urethra before running into an area of relative na rrowing in the bulbar urethra. As a result, I switched to a 19-Kenyan scope sheath and was able to t raverse this region and into the bladder with ease. Within the bladder, the trigone was orthotopic i n location as well as the ureteral orifices. The right ureteral orifice was cannulated using the tip of the 5-Kenyan ureteral access catheter, and a retrograde pyelogram was performed. Right retrograde pyelography: Using a 70:30 mixture of Omnipaque and saline, contrast was injected v ia the 5-Kenyan ureteral access catheter and did propagate up a relatively nondilated distal ureter w ith an area of ureteronephrosis in the mid ureter before again becoming nondilated and entering a mil dly hydronephrotic renal pelvis. There was a filling defect at this point at the ureteropelvic junct ion that was potentially the renal calculus versus I suppose an air bubble. I thus passed a Sensor w augie via the 5-Kenyan ureteral access catheter and it did coil in the putative upper pole of the kidne y. I then passed a 6-Kenyan x 26 cm double-J stent over the indwelling Sensor wire with a coil obser abel fluoroscopically in the upper pole and one cystoscopically within the bladder. I then decompress ed his bladder of urine and fluid, and took him out of the lithotomy position before he was awakened from general anesthesia. We then transferred him to a stretcher and then he was recovered in the OR given his positive COVID-19 diagnosis. The patient tolerated the procedure well. Complications: None. Discharge Disposition: We will have the patient follow up with me in approximately 1 months' time, a t which point we will initiate additional preoperative planning for approximately 2 months from today 's date. Hopefully by that time, he will have cleared COVID-19 and will be eligible to proceed with definitive right ureteroscopy, laser lithotripsy, and stent exchange. Should he be uncomfortable in terms of his voiding symptoms with the stent in place, we can consider the addition of oxybutynin 5 m g p.o. t.i.d. p.r.n., and he may benefit from [id number] Azo for any dysuria. HUGO/AMANDA Voice ID: [id number] Report ID: [id number]
[2020-01-21 19:34] VITALS: BP 142/82; TEMP 97.2
== END 2020-01-21 19:59 | disposition home or self-care (01) ==
LOC: OR 14:04
PROVIDERS: ATTEND Urology
PROC: 0T9680Z Drainage of Right Ureter with Drainage Device, Via Natural or Artificial Opening Endoscopic (ICD-10-PCS; principal; 2020-01-21 08:30)
DX: N13.2 Hydronephrosis with renal and ureteral calculous obstruction (principal); I10 Essential (primary) hypertension; E03.9 Hypothyroidism, unspecified; K21.9 Gastro-esophageal reflux disease without esophagitis; Z87.442 Personal history of urinary calculi; E66.9 Obesity, unspecified; Z68.34 Body mass index [BMI] 34.0-34.9, adult; Z86.19 Personal history of other infectious and parasitic diseases
CPT/HCPCS: 52351; 52332; 93005; 87088; 85025; 87086; 80048; 36415; 85610; 85730; 84153; 71046; 74450; 51610; U0002; J2704; J1580 ×2; J2250; J3010; J1100; J2175; J2405; J0290; J1170

== ENCOUNTER 2020-02-03 06:03 | Emergency (ER) | payer OTHER ==
[2020-02-03 06:31] LABS: Urine Blood 3+ (NEG); Urine Glucose NEGATIVE (NEG); Urine Protein 3+ (NEG)
[2020-02-03 06:37] LABS: Urine Bacteria 20-50 /HPF (NONE SEEN); Urine RBC >50 /HPF (NONE SEEN)
[2020-02-03] MEDS ORDERED: NA CHLORIDE 0.9% 1,000 ML ONE (06:42)
[2020-02-03] MEDS ORDERED: ONDANSETRON 4 MG/2 ML VIAL ONE (06:42)
[2020-02-03] MEDS ORDERED: MORPHINE 4 MG/ML SYR ONE (06:42)
[2020-02-03 06:44] LABS: Basophils % 1.4 % (0-1.3); Hematocrit 47.3 % (39.6-49.0); Lymphocytes % 37.3 % (15.3-44.8); MPV 8.9 fL (7.6-11.3)
[2020-02-03] MEDS ORDERED: MEPERIDINE HCL 25 MG/ML SYR ONE (06:50)
[2020-02-03 07:01] LABS: Bilirubin Direct 0.1 mg/dL (0-0.2); Bilirubin Total 0.4 mg/dL (0.2-1.0); Potassium 4.3 mmol/L (3.5-5.1); Protein, Total 7.1 g/dL (6.4-8.2)
--- NOTE | 2020-02-03 07:51 | RAD REPORT ---
EXAM DESCRIPTION: CT - Stone Protocol - 02/03/2020 7:09 am CLINICAL HISTORY: Abdominal pain. COMPARISON: December 2019 TECHNIQUE: Computed axial tomography of the abdomen pelvis was obtained without oral or IV contrast. Lack of IV and oral contrast limits evaluation of solid organs, bowel, and vessels. Coronal reformat russell images were obtained and reviewed. All CT scans are performed using dose optimization technique as appropriate and may include automated exposure control or mA/KV adjustment according to patient size. FINDINGS: A right ureteral stent has been placed. Mild right hydronephrosis is present. There is str anding adjacent to the right ureter and right renal pelvis. 8 millimeter calculus within the right r enal pelvis. Fatty liver. Spleen, pancreas and adrenals appear grossly normal There is no evidence of diverticulitis. The appendix appears normal. Small inguinal hernias contain f at. Plates and screws have been placed into the the pelvic bones. The prostate gland is mildly enlarg ed 6 millimeter right basilar lung nodule unchanged IMPRESSION: Right ureteral stent Mild right hydronephrosis. Stranding adjacent to the right renal pelvis and right ureter may indicate inflammation or infection. Small inguinal hernias contain fat the post surgical changes involve the lumbar spine resulting in sp inal stenosis 6 millimeter right basilar lung nodule are unchanged. A followup CT chest in 6 months recommended
--- NOTE | 2020-02-03 07:53 | RAD REPORT ---
EXAM DESCRIPTION: US - Scrotum Testicles - 02/03/2020 7:18 am CLINICAL HISTORY: Testicular pain COMPARISON: None FINDINGS: Right testicle measures 3.2 x 2.1 x 1.9 centimeters. Echotexture is homogeneous. Normal bl ood flow Left testicle measures 4 x 2.2 x 2.8 centimeters. Echotexture is homogeneous. Normal blood flow The epididymides are normal in size and echotexture. Normal blood flow is seen. A 5 centimeter right spermatocele IMPRESSION: A 5 centimeter right spermatocele
--- NOTE | 2020-02-03 08:11 | ER ---
Nurse's Notes [facility] Name: aHrris Jones Age: 69 yrs Sex: Male : 1950 Arrival Date: 02/03/2020 Time: 06:04 Bed 5 Private MD: Diagnosis: Hematuria, unspecified;Urinary tract infection, site not specified Presentation: 02/02 06:10 Chief complaint: Patient states: seen here about a week or so ago with kidney stones, dm5 they put in stints and it has been miserable ever since. Coronavirus screen: Client denies travel out of the [place] in the last 14 days. At this time, the client does not indicate any symptoms associated with coronavirus-19. Ebola Screen: Patient negative for fever greater than or equal to 101.5 degrees Fahrenheit, and additional compatible Ebola Virus Disease symptoms Patient denies exposure to infectious person. Patient denies travel to an Ebola-affected area in the 21 days before illness onset. No symptoms or risks identified at this time. Risk Assessment: Do you want to hurt yourself or someone else? Patient reports no desire to harm self or others. Onset of symptoms was January 27, 2020. 06:10 Method Of Arrival: Ambulatory dm5 06:10 Acuity: MARIAH 3 dm5 06:10 Initial Sepsis Screen: Does the patient meet any 2 criteria? No. Patient's initial rr5 sepsis screen is negative. Does the patient have a suspected source of infection? Yes: Dysuria/Frequency/Urgency/UTI. Historical: - Allergies: 06:12 Talwin; dm5 - PMHx: 06:12 Hypertension; Hypothyroidism; dm5 - PSHx: 06:12 stint for kidney stone; dm5 - Immunization history:: Adult Immunizations up to date. - Social history:: Smoking status: unknown Patient/guardian denies using alcohol, street drugs. Screenin:15 Abuse screen: Denies threats or abuse. Denies injuries from another. Nutritional rr5 screening: No deficits noted. Tuberculosis screening: No symptoms or risk factors identified. Fall Risk IV access (20 points). Total Carlson Fall Scale indicates No Risk (0-24 pts). Assessment: 06:10 General: Appears in no apparent distress. uncomfortable, Behavior is calm, cooperative, rr5 appropriate for age. 06:10 Pain: Complains of pain in abdomen and right testicle and right lower quadrant and rr5 suprapubic area and right flank Pain currently is 8 out of 10 on a pain scale. Quality of pain is described as aching, Pain began gradually, Is intermittent. Neuro: Level of Consciousness is awake, alert, obeys commands, Oriented to person, place, time, situation. Cardiovascular: Capillary refill < 3 seconds Patient's skin is warm and dry. Respiratory: Airway is patent Respiratory effort is even, unlabored, Respiratory pattern is regular, symmetrical. GI: Abdomen is round distended, Abdomen is tender to palpation in right lower quadrant and left lower quadrant Reports lower abdominal pain, upper abdominal pain. : Reports pain testicle. EENT: No signs and/or symptoms were reported regarding the EENT system. Derm: Skin is intact, is healthy with good turgor, Skin temperature is warm. Musculoskeletal: Circulation, motion, and sensation intact. Capillary refill < 3 seconds. 06:30 Reassessment: patient stated morphine did not worked for his pain the last time he rr5 received it. ED provider informed other intervention used. 07:30 Reassessment: Patient appears in no apparent distress at this time. Patient and/or tw2 family updated on plan of care and expected duration. Pain level reassessed. Patient is alert, oriented x 3, equal unlabored respirations, skin warm/dry/pink. Vital Signs: 06:15 BP 145 / 98; Pulse 69; Resp 19; Temp 98.3; Pulse Ox 98% ; Weight 124.74 kg; Height 6 rr5 ft. 2 in. (187.96 cm); Pain 8/10; 07:30 BP 115 / 81; Pulse 57; Resp 17; Pulse Ox 98% on R/A; tw2 08:18 BP 126 / 82; Pulse 58; Resp 16; Pulse Ox 98% on R/A; tw2 06:15 Body Mass Index 35.31 (124.74 kg, 187.96 cm) rr5 ED Course: 06:04 Patient arrived in ED. am2 06:08 Robe Soni MD is Attending Physician. mh7 06:11 Triage completed. dm5 06:12 Arm band placed on Patient placed in an exam room, on a stretcher. dm5 06:14 Sathish Henry RN is Primary Nurse. rr5 06:15 Patient has correct armband on for positive identification. Bed in low position. Call rr5 light in reach. Pulse ox on. NIBP on. 06:20 Urine collected: clean catch specimen, cloudy. rr5 06:30 Inserted saline lock: 20 gauge in right forearm, using aseptic technique. Blood rr5 collected. 07:08 CT Stone Protocol In Process Unspecified. EDMS 07:09 Attending Physician role handed off by Robe Soni MD rn 07:09 Chang Uribe MD is Attending Physician. rn 07:18 US Scrotum Testicles In Process Unspecified. EDMS 07:23 Primary Nurse role handed off by Sathish Henry, VITO eb 07:30 Vivi Gormna, VITO is Primary Nurse. tw2 08:10 Jani Beck MD is Referral Physician. rn 08:23 No provider procedures requiring assistance completed. IV discontinued, intact, jl7 bleeding controlled, No redness/swelling at site. Pressure dressing applied. Administered Medications: 06:35 Drug: NS 0.9% 1000 ml Route: IV; Rate: 1000 ml; Site: right forearm; rr5 08:00 Follow up: IV Status: Completed infusion; IV Intake: 1000ml tw2 06:35 Drug: Zofran (Ondansetron) 4 mg Route: IVP; Site: right forearm; rr5 08:19 Follow up: Response: No adverse reaction; Nausea is decreased tw2 06:40 Not Given (Other Intervention Used): morphine 4 mg IVP once; RASS on ADMIN: Combtv4, rr5 Very Agttd3, Agttd2, Rstlss1, AlertClm0, Drwsy-1, Lt Sdtn-2, Mod Sdtn-3, Dp Sdtn-4, UnArsble-5 06:40 Drug: Demerol 25 mg {Note: rass 0.} Route: IVP; Site: right forearm; rr5 08:19 Follow up: Response: No adverse reaction; Pain is decreased; RASS: Alert and Calm (0) tw2 08:18 Drug: Rocephin 1 grams Route: IV; Rate: calculated rate; Site: right antecubital; tw2 08:23 Follow up: Response: No adverse reaction; IV Status: Completed infusion jl7 Intake: 08:00 IV: 1000ml; Total: 1000ml. tw2 Outcome: 08:10 Discharge ordered by . rn 08:23 Discharged to home ambulatory. jl7 08:23 Condition: stable 08:23 Discharge instructions given to patient, Instructed on discharge instructions, follow up and referral plans. medication usage, Demonstrated understanding of instructions, follow-up care, medications, Prescriptions given X 1. 08:24 Patient left the ED. jl7 Signatures: Dispatcher [employer] EDMS Elvia Marino, RN RN dm5 Chang Uribe MD MD rn Wise, Tara RN RN tw2 Ruddy Ugalde RN RN jl7 Orly Vargas am2 Lola Arias Raymond, RN RN rr5 Robe Soni MD MD 7
--- NOTE | 2020-02-03 08:11 | EDPHYS ---
Physician Documentation [facility] Name: Harris Jones Age: 69 yrs Sex: Male : 1950 Arrival Date: 02/03/2020 Time: 06:04 Bed 5 Private MD: ED Physician Chang Uribe HPI: 02/02 06:27 This 69 yrs old Male presents to ER via Ambulatory with complaints of mh7 Testicular Pain, Abdominal Pain. 06:27 The patient presents with flank pain, described as intermittent, sharp, waxing/waning, mh7 of the right flank, that radiates to the right lower abdomen, scrotal pain, of the right side, without swelling, without erythema. 06:28 Onset: The symptoms/episode began/occurred 2 week(s) ago. Modifying factors: The mh7 symptoms are alleviated by nothing, the symptoms are aggravated by nothing. Associated signs and symptoms: Pertinent positives: abdominal pain, hematuria, Pertinent negatives: constipation, diarrhea, dysuria, fever, nausea, vomiting. Severity of symptoms: At their worst the symptoms were moderate, 3 day(s) ago, in the emergency department the symptoms are unchanged. The patient has experienced similar episodes in the past, multiple times. The patient has been recently seen by a physician: Dr. Beck 1 week(s) ago. Historical: - Allergies: 06:12 Talwin; dm5 - PMHx: 06:12 Hypertension; Hypothyroidism; dm5 - PSHx: 06:12 stint for kidney stone; dm5 - Immunization history:: Adult Immunizations up to date. - Social history:: Smoking status: unknown Patient/guardian denies using alcohol, street drugs. ROS: 06:28 Constitutional: Negative for fever, chills, and weight loss, Eyes: Negative for injury, mh7 pain, redness, and discharge, ENT: Negative for injury, pain, and discharge, Neck: Negative for injury, pain, and swelling, Cardiovascular: Negative for chest pain, palpitations, and edema, Respiratory: Negative for shortness of breath, cough, wheezing, and pleuritic chest pain, MS/Extremity: Negative for injury and deformity, Skin: Negative for injury, rash, and discoloration, Neuro: Negative for headache, weakness, numbness, tingling, and seizure, Psych: Negative for depression, anxiety, suicide ideation, homicidal ideation, and hallucinations, Allergy/Immunology: Negative for hives, rash, and allergies, Endocrine: Negative for neck swelling, polydipsia, polyuria, polyphagia, and marked weight changes, Hematologic/Lymphatic: Negative for swollen nodes, abnormal bleeding, and unusual bruising. Exam: 06:28 Head/Face: Normocephalic, atraumatic. Eyes: Pupils equal round and reactive to light, mh7 extra-ocular motions intact. Lids and lashes normal. Conjunctiva and sclera are non-icteric and not injected. Cornea within normal limits. Periorbital areas with no swelling, redness, or edema. Neck: Trachea midline, no thyromegaly or masses palpated, and no cervical lymphadenopathy. Supple, full range of motion without nuchal rigidity, or vertebral point tenderness. No Meningismus. Chest/axilla: Normal chest wall appearance and motion. Nontender with no deformity. No lesions are appreciated. Cardiovascular: Regular rate and rhythm with a normal S1 and S2. No gallops, murmurs, or rubs. Normal PMI, no JVD. No pulse deficits. Respiratory: Lungs have equal breath sounds bilaterally, clear to auscultation and percussion. No rales, rhonchi or wheezes noted. No increased work of breathing, no retractions or nasal flaring. 06:28 Skin: Warm, dry with normal turgor. Normal color with no rashes, no lesions, and no evidence of cellulitis. MS/ Extremity: Pulses equal, no cyanosis. Neurovascular intact. Full, normal range of motion. Neuro: Awake and alert, GCS 15, oriented to person, place, time, and situation. Cranial nerves II-XII grossly intact. Motor strength 5/5 in all extremities. Sensory grossly intact. Cerebellar exam normal. Normal gait. Psych: Awake, alert, with orientation to person, place and time. Behavior, mood, and affect are within normal limits. 06:28 Constitutional: The patient appears in no acute distress, alert, awake, uncomfortable. 06:28 Abdomen/GI: Inspection: abdomen appears normal, Bowel sounds: normal, in all quadrants, Palpation: moderate abdominal tenderness, in the suprapubic area and right lower quadrant, Rectal exam: the exam is deferred, because of patient request, Indicators: McBurney's point is not tender, Pozo's sign is negative, Rovsing's sign is negative, Obturator sign is negative, Psoas sign is negative, Liver: no appreciated palpable abnormalities, Hernia: not appreciated. 06:28 Back: normal spinal alignment noted, CVA tenderness, is absent, vertebral tenderness, is not appreciated, muscle spasm, is not present. 06:28 : CVA tenderness, is absent, Male external genitalia: tenderness, of the right testicle is noted, of the epididymis area, that is moderate, Bladder: tenderness, that is mild, Rectal exam: is refused by patient or guardian. Vital Signs: 06:15 BP 145 / 98; Pulse 69; Resp 19; Temp 98.3; Pulse Ox 98% ; Weight 124.74 kg; Height 6 rr5 ft. 2 in. (187.96 cm); Pain 8/10; 07:30 BP 115 / 81; Pulse 57; Resp 17; Pulse Ox 98% on R/A; tw2 08:18 BP 126 / 82; Pulse 58; Resp 16; Pulse Ox 98% on R/A; tw2 06:15 Body Mass Index 35.31 (124.74 kg, 187.96 cm) rr5 MDM: 07:05 Transition of care: After a detail discussion of the patient's case, care is mh7 transferred to Chang Uribe MD. 07:09 Patient medically screened. rn 08:07 Differential diagnosis: UTI, kidney stone, ureteral stent rn problem/migration/inflammation. Data reviewed: vital signs, nurses notes, lab test result(s), radiologic studies, CT scan, and as a result, I will discharge patient. Counseling: I had a detailed discussion with the patient and/or guardian regarding: the historical points, exam findings, and any diagnostic results supporting the discharge/admit diagnosis, lab results, radiology results, the need for outpatient follow up, to return to the emergency department if symptoms worsen or persist or if there are any questions or concerns that arise at home. ED course: Very mild hydro, stent in place, + UTI with inflammation, will put on abx, and will f/u with Dr. Beck for further care. Pt wants stent removed, told him we do not do that in ER. He saw Dr. Beck recently and requested removal as well, but not removed. . 02/02 06:20 Order name: Urine Microscopic Only; Complete Time: 06:50 rr5 02/02 06:23 Order name: Basic Metabolic Panel; Complete Time: 07:55 7 02/02 06:23 Order name: CBC with Diff; Complete Time: 07:55 7 02/02 06:23 Order name: Hepatic Function; Complete Time: 07:55 7 02/02 06:23 Order name: Lipase; Complete Time: 07:55 7 02/02 06:28 Order name: Urine Dipstick--Ancillary (enter results); Complete Time: 06:33 mw2 02/02 06:39 Order name: Urine Culture EDMS 02/02 06:51 Order name: CT Stone Protocol; Complete Time: 07:55 7 02/02 06:51 Order name: US Scrotum Testicles; Complete Time: 07:55 7 02/02 06:23 Order name: IV Saline Lock; Complete Time: 06:40 7 02/02 06:23 Order name: Labs collected and sent; Complete Time: 06:40 [facility] 02/02 06:25 Order name: Urine Dipstick-Ancillary (obtain specimen); Complete Time: 06:25 rr5 Administered Medications: 06:35 Drug: NS 0.9% 1000 ml Route: IV; Rate: 1000 ml; Site: right forearm; rr5 08:00 Follow up: IV Status: Completed infusion; IV Intake: 1000ml tw2 06:35 Drug: Zofran (Ondansetron) 4 mg Route: IVP; Site: right forearm; rr5 08:19 Follow up: Response: No adverse reaction; Nausea is decreased tw2 06:40 Not Given (Other Intervention Used): morphine 4 mg IVP once; RASS on ADMIN: Combtv4, rr5 Very Agttd3, Agttd2, Rstlss1, AlertClm0, Drwsy-1, Lt Sdtn-2, Mod Sdtn-3, Dp Sdtn-4, UnArsble-5 06:40 Drug: Demerol 25 mg {Note: rass 0.} Route: IVP; Site: right forearm; rr5 08:19 Follow up: Response: No adverse reaction; Pain is decreased; RASS: Alert and Calm (0) tw2 08:18 Drug: Rocephin 1 grams Route: IV; Rate: calculated rate; Site: right antecubital; tw2 08:23 Follow up: Response: No adverse reaction; IV Status: Completed infusion jl7 Disposition: 02/03/20 08:10 Discharged to Home. Impression: Hematuria, unspecified, Urinary tract infection, site not specified. - Condition is Stable. - Discharge Instructions: Hematuria, Adult, Urinary Tract Infection, Adult. - Prescriptions for cefpodoxime 100 mg Oral Tablet - take 2 tablet by ORAL route every 12 hours for 10 days take with food; 40 tablet. - Medication Reconciliation Form, Thank You Letter, Antibiotic Education, Prescription Opioid Use form. - Follow up: Jani Beck MD; When: As needed; Reason: Recheck today's complaints, Re-evaluation by your physician. - Problem is an ongoing problem. - Symptoms have improved. Signatures: Dispatcher [employer] EDMS Elvia Marino, RN RN dm5 Chang Uribe MD MD rn Vivi Gorman RN RN tw2 Ruddy Ugalde RN RN jl7 Sathish Henry RN RN rr5 Robe Soni MD MD 7 Corrections: (The following items were deleted from the chart) 08:24 08:10 02/03/2020 08:10 Discharged to Home. Impression: Hematuria, unspecified; Urinary jl7 tract infection, site not specified. Condition is Stable. Forms are Medication Reconciliation Form, Thank You Letter, Antibiotic Education, Prescription Opioid Use. Follow up: Jani Beck; When: As needed; Reason: Recheck today's complaints, Re-evaluation by your physician. Problem is an ongoing problem. Symptoms have improved. rn
[2020-02-03] MEDS ORDERED: CEFTRIAXONE/SWI 1gm 1 GM/10 ML SYR ONE (08:33)
[2020-02-04 19:32] VITALS: TEMP 98.3; O2SAT 98
[2020-02-04 19:34] VITALS: BP 126/82
== END 2020-02-03 08:24 | disposition home or self-care (01) ==
LOC: ER 06:03
DX: N39.0 Urinary tract infection, site not specified (principal); R31.9 Hematuria, unspecified; I10 Essential (primary) hypertension; Z88.6 Allergy status to analgesic agent; Z87.442 Personal history of urinary calculi
CPT/HCPCS: 85025; 87086; 80048; 36415; 80076; 83690; 76377; 74176; 76870; 99284; J2175; J0696; J7030; J2405; 81003; 81015; 87088

== ENCOUNTER 2020-02-11 08:03 | Day surgery (SDC) | payer OTHER ==
[2020-02-11] MEDS ORDERED: CEFAZOLIN/SWI 1gm 1 GM/10 ML SYR ONE ×2 (08:27→09:57)
[2020-02-11] MEDS ORDERED: Ringers Lactate 1,000 ML IV ONE (08:27)
[2020-02-11] MEDS ORDERED: HEPARIN 500 UNIT/5 ML SYR IV ONE (09:00)
[2020-02-11] MEDS ORDERED: propofoL 200 MG/20 ML VIAL IV ONE (09:15)
[2020-02-11] MEDS ORDERED: LIDOCAINE 1% MPF 5 ML VIAL ONE (09:24)
[2020-02-11] MEDS ORDERED: FENTANYL CITR 100 MCG/2 ML ONE (09:24)
[2020-02-11] MEDS ORDERED: MIDAZOLAM HCL 2 MG/2 ML INJ ONE (09:24)
[2020-02-11] MEDS ORDERED: Mastisol Adhesive Liq ONE (10:40)
--- NOTE | 2020-02-11 10:42 | RAD REPORT ---
EXAM DESCRIPTION: RAD - Cystography - 02/11/2020 10:33 am CLINICAL HISTORY: RT URETEROSCOPY W STENT COMPARISON: None FINDINGS: Approximately 25 fluoroscopic spot images were obtained during fluoroscopic assisted urete roscopy and stent placement. No suspicious or unexpected findings. Fluoro time was 40 seconds. IMPRESSION: Ureteroscopy and stent placement procedure as detailed.
[2020-02-11] MEDS ORDERED: ONDANSETRON 4 MG/2 ML VIAL ONE (11:26)
[2020-02-11] MEDS ORDERED: HYDROMORPHONE HCL 1 MG/ML INJ ONE (11:26)
[2020-02-11] MEDS ORDERED: HYDROCODONE/APAP 5/325 MG TAB PO PRN (11:34)
[2020-02-11] MEDS ORDERED: PHENAZOPYRIDINE 100MG TAB PO ONE (11:34)
--- NOTE | 2020-02-11 12:13 | OP ---
Surgeon: BETITO NAVARRETE Preoperative Diagnoses: 1.Right obstructive ureterolithiasis. 2.Status post cystoscopy and right ureteral stent placement. 3.Acute kidney injury on chronic kidney disease. Postoperative Diagnoses: 1.Right obstructive ureterolithiasis. 2.Status post cystoscopy and right ureteral stent placement. 3.Acute kidney injury on chronic kidney disease. 4.In addition to 10 mm right mid pole posterior nephrolithiasis. Procedure: 1.Cystoscopy. 2.Right ureteroscopy, laser lithotripsy, stent exchange with the tethered ureteral stent on the righ t side. 3.Right retrograde pyelogram. Indication For Procedure: Mr. Jones presented to the Urology Clinic after emergency department vis it with a 10 mm proximal ureteral/UPJ calculus that was obstructing with signs of potential acute kid alex injury. Because his baseline creatinine was not known, he was scheduled for definitive managemen t of the stone, but his COVID preoperative screening test returned positive. He was thus canceled in itially, but rescheduled 2 weeks later for right ureteral stent placement despite being continually C OVID-19 positive in order to preserve his right renal unit function because he continued to complain about the stent, associated gross hematuria, and had come by my office, called a few times, and even gone to the emergency room out of mostly frustration about having the stent in place and wanting the procedure done, he was scheduled to proceed despite his ongoing COVID-19 positive status and having a stent, which had relieved the obstruction and improvement in his renal function. Fortunately, prior to the case starting today, his COVID status turned negative. Procedure In Detail: The patient was consented in the preoperative holding area before being transfe rred to the operative suite where general anesthesia using an LMA was induced. He was given Ancef 2 g IV antimicrobial prophylaxis and pneumo boots were provided for DVT prophylaxis. He was placed in the lithotomy position, padded and secured to the table appropriately. The case was begun using a 22 -[place]uan rigid cystoscope to traverse the urethra and into the bladder with ease. The bladder was justice veyed and the indwelling right ureteral stent was noted to emanate from the right ureteral orifice. It was grasped using a flexible alligator grasper and delivered under fluoroscopic guidance out the m eatus. The tip of the stent remained within the mid ureter, so I was able to pass a Sensor wire via the stent and observed, it fluoroscopically coiled within the putative renal pelvis. I then passed o brian the indwelling wire, a dual-lumen catheter and performed a retrograde pyelogram. Right retrograde pyelography: Using the second lumen of the dual-lumen catheter and a 70:30 mixture of Omnipaque and saline, contra st was injected and did opacify the upper and mid pole calices indicative of a proper intra-ureteral positioning of the wire and catheter. I thus aspirated and decompressed the renal pelvis of bloody f luid, which was then sent for culture to confirm the preoperative negative urine culture observed. I then irrigated the renal pelvis to clear it of the bloody fluid, and then I passed a [employer] guidewi re via the second lumen of the dual-lumen catheter into the upper pole of the kidney where it coiled fluoroscopically alongside the initial wire. I then attempted to pass the flexible ureteroscope over the second guidewire placed, however, this wa s aborted at the level of the ureterovesical junction despite the presence of the stenting previously . As a result, I employed a ureteral access sheath to gain access into the mid distal ureter and the n was able to pass the flexible digital ureteroscope with ease into the upper pole of the kidney as o bserved fluoroscopically. I then surveyed the upper and anterior and lateral mid poles of the kidney with no additional stones noted before observing in the posterior mid pole, the 1 cm calculus previo usly at the ureteropelvic junction. I thus employed a 200 nm laser fiber at holmium settings of 0.8 joules and 10 hertz initially increasing that over time to 15 hertz to fragment the stone. Pictures were taken to document the presence of the stone, since the patient was skeptical that it was still t here, as well as the fragmentation. Once the stone was significantly fragmented into dust, it furthe r to dust sizes smaller or equal to the presence of the laser fiber, I then increased the rate to 20 hertz and 0.7 joules to completely dust the stone fragments. Once this was completed, I then surveye d the calices of the kidney including the lower pole calyx for any additional stone fragments, and wh en none were noted, I then backed the ureteroscope into the ureteropelvic junction and surveyed from it down through the mid and into the distal ureter before completing the ureteroscopy portion of the case. There were no signs of ureteral injury, and while there was some widening of the proximal uret eral lumen suggestive of some potential scar formation, there was no evidence of stricture; as a resu lt, I replaced the cannula for the ureteral access sheath and again performed a retrograde pyelograph y to confirm continuity of the collecting system and its drainage. When no leaks were observed fluor oscopically or evidence of ureteral injury, I then removed the ureteral access sheath in its entirety , and I backloaded the 22-Nicaraguan cystoscope over the indwelling safety wire and passed over the wire, a 6-[place]icaraguan by 28 cm double-J right ureteral stent. A coil was observed fluoroscopically within the upper pole of the kidney, and an additional coil was observed cystoscopically within the bladder. Be cause the patient had inquired, somewhat demandingly, preoperatively about whether I would leave the stent on a string, after decompressing his bladder of fluid and urine, I then secured the string of t he stent to the glans penis beneath the foreskin using Steri-Strips and benzoin. The foreskin was re duced, and the patient was then taken out of the lithotomy position, awakened from general anesthesia , then transferred to a stretcher and to the recovery room in good condition. Complications: None. Discharge Disposition: He will follow up in the Urology Clinic in approximately 3-5 days for tethere d ureteral stent extraction. He should be provided a single dose of either ciprofloxacin or Bactrim antimicrobial prophylaxis at the time of the stent removal to minimize the risk of infectious complic ation. Followup of the intraoperative renal aspirate urine culture should be made to determine if ad ditional antibiotic therapy would be required. Otherwise, determination should be made as to whether he is a recurrent stone former, and if so, a metabolic profile assessment should be made with 2 x24 hour urine studies and blood work via [employer] to assess his risk of future stone forming event and determine potential medical therapeutic intervention. HUGO/MODL Voice ID: [id number] Report ID: [id number]
[2020-02-11] MEDS ORDERED: HYDROCODONE/APAP 10/325 TAB ONE (12:25)
[2020-02-11 13:11] VITALS: BP 128/70; TEMP 97.6; O2SAT 95
== END 2020-02-11 12:50 | disposition home or self-care (01) ==
LOC: OR 08:03
PROVIDERS: ATTEND Urology
PROC: 0TF68ZZ Fragmentation in Right Ureter, Via Natural or Artificial Opening Endoscopic (ICD-10-PCS; 2020-02-11)
PROC: BT1DZZZ Fluoroscopy of Right Kidney, Ureter and Bladder (ICD-10-PCS; 2020-02-11)
PROC: 0T768DZ Dilation of Right Ureter with Intraluminal Device, Via Natural or Artificial Opening Endoscopic (ICD-10-PCS; principal; 2020-02-11 09:30)
DX: N20.1 Calculus of ureter (principal); N17.9 Acute kidney failure, unspecified; Z20.828 Contact with and (suspected) exposure to other viral communicable diseases
CPT/HCPCS: 52005; 74420; 87070; 51600; 74430; U0002; J2704; J2250; J3010; J0690 ×2; J7120; J2405; J1170; J1642